=== PATIENT | male | born 1965 | race Hispanic/Latino ===

== ENCOUNTER 2018-06-02 04:14 | Inpatient (IN) | payer BC, OTHER ==
[2018-06-02] MEDS ORDERED: ALBUTEROL 2.5 MG/3 ML NEB SOL ONE (04:35)
[2018-06-02 04:59] LABS: Absolute Lymphocytes (CBC) 1.9 K/uL (0.7-4.9); Absolute Monocytes 0.7 K/uL (0.1-1.3); Absolute Neutrophil 13.1 K/uL (1.8-8.0); Basophils % 0.3 % (0-1.3); Eosinophils % 0.7 % (0-4.4); Lymphocytes % 12.2 % (15.3-44.8); MCH 31.4 pg (27.0-35.0); MPV 8.5 fL (7.6-11.3); Monocytes % 4.3 % (3.3-12.3); RBC Red Blood Cell Count 4.44 M/uL (4.33-5.43)
[2018-06-02 05:02] LABS: Protime INR 1.08
[2018-06-02 05:15] LABS: Potassium 3.8 mmol/L (3.5-5.1)
[2018-06-02] MEDS ORDERED: CEFTRIAXONE/SWI 1gm 1 GM/10 ML SYR ONE (05:20)
[2018-06-02] MEDS ORDERED: KETOROLAC 30 MG/ML INJ ONE (05:36)
--- NOTE | 2018-06-02 06:40 | EDPHYS ---
Physician Documentation [facility] Name: Chidi Melchor Age: 52 yrs Sex: Male : 1965 Arrival Date: 06/02/2018 Time: 04:16 Bed 16 Private MD: ED Physician Ward Nixon HPI: 06/02 06:31 This 52 yrs old Male presents to ER via Ambulatory with complaints of Chest gs Pain. 06:35 The patient or guardian reports chest pain that is located primarily in the anterior gs chest wall, right. Onset: acutely, yesterday. The pain does not radiate. Associated signs and symptoms: Pertinent positives: cough, shortness of breath. The chest pain is described as sharp. Duration: The patient or guardian reports a single episode, that is still ongoing. Modifying factors: the symptoms are aggravated by deep breath. Severity of pain: At its worst the pain was moderate in the emergency department the pain is unchanged. The patient has not experienced similar symptoms in the past. Historical: - Allergies: 04:50 No Known Allergies; ea - Home Meds: 04:50 None [Active]; ea - PMHx: 04:50 None; ea - PSHx: 04:50 None; ea - Immunization history:: Adult Immunizations up to date. - Social history:: Smoking status: Patient uses tobacco products, denies chronic smoking, but will smoke occasionally. - Ebola Screening: : No symptoms or risks identified at this time. ROS: 06:35 Constitutional: Negative for fever. gs 06:35 All other systems are negative. Exam: 06:35 Head/Face: Normocephalic, atraumatic. Eyes: Pupils equal round and reactive to light, gs extra-ocular motions intact. Lids and lashes normal. Conjunctiva and sclera are non-icteric and not injected. Cornea within normal limits. Periorbital areas with no swelling, redness, or edema. ENT: Nares patent. No nasal discharge, no septal abnormalities noted. Tympanic membranes are normal and external auditory canals are clear. Oropharynx with no redness, swelling, or masses, exudates, or evidence of obstruction, uvula midline. Mucous membranes moist. Neck: Trachea midline, no thyromegaly or masses palpated, and no cervical lymphadenopathy. Supple, full range of motion without nuchal rigidity, or vertebral point tenderness. No Meningismus. Chest/axilla: Normal chest wall appearance and motion. Nontender with no deformity. No lesions are appreciated. 06:35 Abdomen/GI: Soft, non-tender, with normal bowel sounds. No distension or tympany. No guarding or rebound. No evidence of tenderness throughout. Back: No spinal tenderness. No costovertebral tenderness. Full range of motion. Skin: Warm, dry with normal turgor. Normal color with no rashes, no lesions, and no evidence of cellulitis. MS/ Extremity: Pulses equal, no cyanosis. Neurovascular intact. Full, normal range of motion. Neuro: Awake and alert, GCS 15, oriented to person, place, time, and situation. Cranial nerves II-XII grossly intact. Motor strength 5/5 in all extremities. Sensory grossly intact. Cerebellar exam normal. Normal gait. 06:35 Constitutional: The patient appears alert, awake, uncomfortable. 06:35 Cardiovascular: Rate: tachycardic, Rhythm: regular, Pulses: no pulse deficits are appreciated, Heart sounds: normal. 06:35 ECG was reviewed by the Attending Physician. 06:35 Respiratory: mild respiratory distress is noted, Respirations: splinting, tachypnea, Breath sounds: rales, that are moderate, are scattered, Respiratory rate: 26 Vital Signs: 04:30 BP 145 / 95; Pulse 108; Resp 22; Temp 98.3(O); Pulse Ox 95% on R/A; Weight 97.52 kg; ea Height 5 ft. 8 in. (172.72 cm); Pain 7/10; 05:30 BP 107 / 72; Pulse 103; Resp 26 S; Pulse Ox 93% on 2.5 lpm NC; Pain 7/10; bs1 06:30 BP 155 / 85; Pulse 95; Resp 20; Temp 98.5(O); Pulse Ox 98% on 2.5 lpm NC; Pain 6/10; bs1 04:30 Body Mass Index 32.69 (97.52 kg, 172.72 cm) ea MDM: 04:27 Patient medically screened. 06:35 Differential diagnosis: acute myocardial infarction, coronary artery disease pneumonia, gs pulmonary embolus. Data reviewed: vital signs, nurses notes. 06/02 04:26 Order name: Basic Metabolic Panel; Complete Time: 05:22 06/02 04:26 Order name: CBC with Diff; Complete Time: 05:08 06/02 04:26 Order name: NT PRO-BNP; Complete Time: 05:22 06/02 04:26 Order name: PT-INR; Complete Time: 05:08 06/02 04:26 Order name: Troponin (emerg Dept Use Only); Complete Time: 05:22 06/02 04:26 Order name: D-Dimer; Complete Time: 05:08 06/02 04:26 Order name: XRAY Chest (1 view) 06/02 05:10 Order name: Blood Culture* 06/02 05:10 Order name: CT Chest For PE Angio 06/02 04:17 Order name: EKG; Complete Time: 04:17 06/02 04:17 Order name: EKG - Nurse/Tech; Complete Time: 04:30 06/02 04:26 Order name: EKG; Complete Time: 04:27 06/02 04:26 Order name: Cardiac monitoring; Complete Time: 05:01 06/02 04:26 Order name: EKG - Nurse/Tech; Complete Time: 04:30 06/02 04:26 Order name: IV Saline Lock; Complete Time: 04:42 06/02 04:26 Order name: Labs collected and sent; Complete Time: 04:42 06/02 04:26 Order name: O2 Per Protocol; Complete Time: 04:43 06/02 04:26 Order name: O2 Sat Monitoring; Complete Time: 04:43 gs EC:35 Rate is 109 beats/min. Rhythm is regular. DE interval is normal. QRS interval is gs normal. QT interval is normal. T waves are Flattened. Clinical impression: NSR w/ Non-specific ST/T Changes. Interpreted by me. Administered Medications: 04:30 Drug: Albuterol 2.5 mg Route: Inhalation; ea 05:20 Drug: Rocephin - (cefTRIAXone) 1 grams Route: IVPB; Infused Over: 30 mins; Site: left bs1 antecubital; 06:52 Follow up: IV Status: Completed infusion bs1 05:34 Drug: TORadol 15 mg Route: IVP; Site: left antecubital; bs1 06:52 Follow up: Response: No adverse reaction bs1 07:05 Drug: Zithromax 500 mg Route: IVPB; Infused Over: 1 hrs; Site: left antecubital; bs1 07:15 Follow up: IV Status: Infusion continued upon admission 07:05 Drug: NS 0.9% 1000 ml Route: IV; Rate: 1 bolus; Site: left antecubital; bs1 07:14 Follow up: IV Status: Infusion continued upon admission hj Disposition: 06:35 Critical Care:. gs Disposition: 06/02/18 06:40 Hospitalization ordered by Katy Sotelo for Inpatient Admission. Preliminary diagnosis are Lobar pneumonia, unspecified organism, Hypoxemia. - Bed requested for Telemetry/MedSurg (Inpatient). - Status is Inpatient Admission. hj - Condition is Stable. - Problem is new. - Symptoms have improved. UTI on Admission? No Critical care time excluding procedures: 06:35 Critical care time: Bedside Care: 10 minutes, Consultation: 10 minutes, Family gs Intervention: 10 minutes. Total time: 30 minutes Signatures: Dispatcher [employer] EDDE Lucy Payne RN RN Sidney Olivas RN RN Dena Omer RN RN ea Starr, Gregory, MD MD Ev Tavarez RN RN bs1 Corrections: (The following items were deleted from the chart) 06:47 06:40 Hospitalization Ordered by Katy Sotelo MD for Inpatient Admission. Preliminary diagnosis is Lobar pneumonia, unspecified organism; Hypoxemia. Bed requested for Telemetry/MedSurg (Inpatient). Status is Inpatient Admission. Condition is Stable. Problem is new. Symptoms have improved. UTI on Admission? No. 07:54 06:47 06/02/2018 06:40 Hospitalization Ordered by Katy Sotelo MD for Inpatient Admission. Preliminary diagnosis is Lobar pneumonia, unspecified organism; Hypoxemia. Bed requested for Telemetry/MedSurg (Inpatient). Status is Inpatient Admission. Condition is Stable. Problem is new. Symptoms have improved. UTI on Admission? No. mw
--- NOTE | 2018-06-02 06:40 | ER ---
Nurse's Notes [facility] Name: Chidi Melchor Age: 52 yrs Sex: Male : 1965 Arrival Date: 06/02/2018 Time: 04:16 Bed 16 Private MD: Diagnosis: Lobar pneumonia, unspecified organism;Hypoxemia Presentation: 06/02 04:30 Presenting complaint: Patient states: Pt reports he started having pain to the right ea side of chest at 2200. Pt reports it is painful to take deep breaths and pain radiates to upper back. Transition of care: patient was not received from another setting of care. Onset of symptoms was June 02, 2018. Risk Assessment: Do you want to hurt yourself or someone else? Patient reports no desire to harm self or others. Initial Sepsis Screen: Does the patient meet any 2 criteria? RR > 20 per min. HR > 90 bpm. Yes Does the patient have a suspected source of infection? No. Patient's initial sepsis screen is negative. Care prior to arrival: None. 04:30 Method Of Arrival: Ambulatory ea 04:30 Acuity: PARUL 3 ea Triage Assessment: 04:30 General: Appears in no apparent distress. Behavior is cooperative, restless. General: ea pt denies fall or injury to area. . Pain: Complains of pain in right clavicle, anterior aspect of right upper chest, right lateral anterior chest and right lateral posterior chest Pain radiates to right lateral anterior chest and right lateral posterior chest Pain currently is 8 out of 10 on a pain scale. Aggravated by pt reports pain is more intense when he takes in a deep breath. Cardiovascular: Heart tones S1 S2 present Patient's skin is warm and dry. Respiratory: Airway is patent Respiratory effort is even, shallow, Respiratory pattern is symmetrical, tachypnea Breath sounds are diminished bilaterally. GI: Abdomen is round Bowel sounds present X 4 quads. Abd is soft and non tender X 4 quads. : No signs and/or symptoms were reported regarding the genitourinary system. Derm: Skin is dry, Skin is normal, Skin temperature is warm. Musculoskeletal: Circulation, motion, and sensation intact. Historical: - Allergies: 04:50 No Known Allergies; ea - Home Meds: 04:50 None [Active]; ea - PMHx: 04:50 None; ea - PSHx: 04:50 None; ea - Immunization history:: Adult Immunizations up to date. - Social history:: Smoking status: Patient uses tobacco products, denies chronic smoking, but will smoke occasionally. - Ebola Screening: : No symptoms or risks identified at this time. Screenin:30 Abuse screen: Denies threats or abuse. Nutritional screening: No deficits noted. ea Tuberculosis screening: No symptoms or risk factors identified. Fall Risk None identified. Assessment: 04:58 General: Appears in no apparent distress. uncomfortable, Behavior is cooperative, bs1 anxious. Pain: Complains of pain in chest and right lateral posterior chest and right lateral anterior chest and anterior aspect of right upper chest and right clavicle Pain radiates to right upper back Pain began gradually. Neuro: Level of Consciousness is awake, alert, obeys commands, Oriented to person, place, time, situation, Appropriate for age It Security Administrator are equal bilaterally. Cardiovascular: Reports chest pain, shortness of breath, Heart tones S1 S2 present Capillary refill < 3 seconds Patient's skin is warm and dry. Cardiovascular: Rhythm is sinus tachycardia. Respiratory: Airway is patent Trachea midline Respiratory effort is even, unlabored, Respiratory pattern is regular, symmetrical, tachypnea Breath sounds with wheezes bilaterally. GI: No signs and/or symptoms were reported involving the gastrointestinal system. : No signs and/or symptoms were reported regarding the genitourinary system. EENT: No signs and/or symptoms were reported regarding the EENT system. Derm: Skin is intact, Skin is pink, warm \\T\\ dry. normal. Musculoskeletal: Circulation, motion, and sensation intact. Capillary refill < 3 seconds, Range of motion: intact in all extremities. 05:24 Reassessment: Informed Dr Nixon that patient began having more pain on the right side bs1 of patients chest. No further orders at this time. Administered 2.5L NC oxygen due to oxygen dropping to 90% on room air. Patient appears uncomfortable and grunting in pain Informed Dr Nixon. 05:38 Reassessment: Patient transferred to CT by Continuous Towel Roller. bs1 06:45 Reassessment: Dr Crawford at bedside communicating with patient regarding POC. Nurse bs1 informed Dr Crawford that rocephin 1gm was given prior to blood cultures. Informed Dr that patient has no fever. Dr States "okay, no problem." No further orders. 06:49 Reassessment: Patient appears in no apparent distress at this time. Patient and/or bs1 family updated on plan of care and expected duration. Pain level reassessed. Patient is alert, oriented x 3, equal unlabored respirations, skin warm/dry/pink. Pending admission to hospital. 07:05 General: Appears in no apparent distress. uncomfortable, Behavior is calm, cooperative, hj appropriate for age. Pain: Complains of pain in chest and right lateral posterior chest and right lateral anterior chest and anterior aspect of right upper chest and right clavicle Pain began gradually. Neuro: Level of Consciousness is awake, alert, obeys commands, Oriented to person, place, time, situation, Appropriate for age. Cardiovascular: Reports chest pain, shortness of breath, Heart tones S1 S2 present Capillary refill < 3 seconds Patient's skin is warm and dry. Rhythm is sinus rhythm. Respiratory: Airway is patent Trachea midline Respiratory effort is even, unlabored, Respiratory pattern is regular, symmetrical. GI: No signs and/or symptoms were reported involving the gastrointestinal system. : No signs and/or symptoms were reported regarding the genitourinary system. EENT: No signs and/or symptoms were reported regarding the EENT system. Derm: Skin is intact, Skin is pink, warm \\T\\ dry. normal. Musculoskeletal: Circulation, motion, and sensation intact. Capillary refill < 3 seconds, Range of motion: intact in all extremities. 07:28 Reassessment: gave nurse to nurse report to CONCEPCION Alt[facility]irano [facility];. Vital Signs: 04:30 BP 145 / 95; Pulse 108; Resp 22; Temp 98.3(O); Pulse Ox 95% on R/A; Weight 97.52 kg; ea Height 5 ft. 8 in. (172.72 cm); Pain 7/10; 05:30 BP 107 / 72; Pulse 103; Resp 26 S; Pulse Ox 93% on 2.5 lpm NC; Pain 7/10; bs1 06:30 BP 155 / 85; Pulse 95; Resp 20; Temp 98.5(O); Pulse Ox 98% on 2.5 lpm NC; Pain 6/10; bs1 04:30 Body Mass Index 32.69 (97.52 kg, 172.72 cm) ED Course: 04:16 Patient arrived in ED. bb 04:17 Ward Nixon MD is Attending Physician. gs 04:30 Arm band placed on right wrist. Patient placed in an exam room, on a stretcher, on ea pulse oximetry. 04:30 Patient has correct armband on for positive identification. Bed in low position. Call ea light in reach. Side rails up X 1. 04:30 Pulse ox on. NIBP on. ea 04:41 X-ray completed. Portable x-ray completed in exam room. Patient tolerated procedure tm4 well. 04:43 Inserted saline lock: 20 gauge in left antecubital area, using aseptic technique. Blood ea collected. 04:44 XRAY Chest (1 view) In Process Unspecified. EDMS 04:45 Ev Tavarez, CONCEPCION is Primary Nurse. bs1 04:48 Triage completed. ea 04:54 Patient maintains SpO2 saturation greater than 95% on room air. ea 05:07 Notified ED physician of a critical lab result(s). D-Dimer 767 Dr Nixon notified. bb 05:[address] via wheelchair. kw1 05:54 CT completed. Patient tolerated procedure well. Patient moved back from CT. kw1 05:57 CT Chest For PE Angio In Process Unspecified. EDMS 06:39 Katy Sotelo MD is Hospitalizing Provider. gs 07:52 No provider procedures requiring assistance completed. Patient admitted, IV remains in hj place. intact. Administered Medications: 04:30 Drug: Albuterol 2.5 mg Route: Inhalation; ea 05:20 Drug: Rocephin - (cefTRIAXone) 1 grams Route: IVPB; Infused Over: 30 mins; Site: left bs1 antecubital; 06:52 Follow up: IV Status: Completed infusion bs1 05:34 Drug: TORadol 15 mg Route: IVP; Site: left antecubital; bs1 06:52 Follow up: Response: No adverse reaction bs1 07:05 Drug: Zithromax 500 mg Route: IVPB; Infused Over: 1 hrs; Site: left antecubital; bs1 07:15 Follow up: IV Status: Infusion continued upon admission hj 07:05 Drug: NS 0.9% 1000 ml Route: IV; Rate: 1 bolus; Site: left antecubital; bs1 07:14 Follow up: IV Status: Infusion continued upon admission hj Outcome: 06:40 Decision to Hospitalize by Provider. 07:53 Admitted to Tele accompanied by tech, via wheelchair, room 420, with oxygen, with tammy chart, Report called to CONCEPCION Hoskins 07:53 Condition: stable 07:53 Instructed on the need for admit, Demonstrated understanding of instructions. 07:54 Patient left the ED. tammy Signatures: Dispatcher [employer] EDMS Yi Kaba tm4 Stormy Bourgeois RN RN Sidney Olivas RN RN hj Antunez, Elena, RN RN ea Starr, Gregory, MD MD Yvrose Ely kw1 Ev Tavarez RN RN bs1
[2018-06-02] MEDS ORDERED: NA CHLORIDE 0.9% 1,000 ML ONE (06:59)
[2018-06-02] MEDS ORDERED: AZITHROMYCIN 500 MG/250 ML BAG ONE (06:59)
--- NOTE | 2018-06-02 07:02 | P.HP ---
Certification for Inpatient Patient admitted to: Inpatient With expected LOS: >2 Midnights Practitioner: I am a practitioner with admitting privileges, knowledge of patient current condition, hospital course, and medical plan of care. Services: Services provided to patient in accordance with Admission requirements found in Title 42 Section 412.3 of the Code of Federal Regulations Patient History Date of Service: 06/02/18 Reason for admission: pneumonia History of Present Illness: Mr Melchor is a 52 years old male with quite benign past medical history, who start yesterday with right side chest pain. The pain was constant, radiated to his right flank, worse with breathing movements. He had subjective fever yesterday, has had some cough but not secretions. The patient states that he smokes and drinks sometimes but not everyday. Lab work remarkable for leukocytosis 15.9K, D-Dimer was elevated as well, CTA chest negative for PE but shows right base consolidation. Temp 98.3F, O2 sat 91% on RA. Home medications list reviewed: Yes - Past Medical/Surgical History Past Medical History: Reviewed- Non-Contributory Past Surgical History: Reviewed- Non-Contributory - Family History Family History: Reviewed- Non-Contributory - Social History Smoking Status: Current some day smoker Counseled patient to stop smoking for: less than 10 minutes Alcohol use: Yes CD- Drugs: No Place of Residence: Home Review of Systems 10-point ROS is otherwise unremarkable Physical Examination - Physical Exam General: Alert, In no apparent distress HEENT: Atraumatic, PERRLA, Mucous membr. moist/pink, EOMI, Sclerae nonicteric Neck: Supple, 2+ carotid pulse no bruit, No LAD, Without JVD or thyroid abnormality Respiratory: Normal air movement, Crackles/rales (right base crackles) Cardiovascular: Regular rate/rhythm, Normal S1 S2 Gastrointestinal: Normal bowel sounds, No tenderness Musculoskeletal: No tenderness Integumentary: No rashes Neurological: Normal speech, Normal strength at 5/5 x4 extr, Normal tone, Normal affect Lymphatics: No axilla or inguinal lymphadenopathy - Studies Laboratory Data (last 24 hrs) 06/02/18 04:40: PT 12.7 H, INR 1.08 06/02/18 04:40: WBC 15.9 H, Hgb 14.0, Hct 40.0, Plt Count 321 06/02/18 04:40: Sodium 140, Potassium 3.8, BUN 17, Creatinine 1.20, Glucose 130 H Assessment and Plan - Problems (Diagnosis) (1) Pneumonia Current Visit: Yes Status: Acute Qualifiers: Pneumonia type: due to unspecified organism Laterality: right Lung location: lower lobe of lung Qualified Code(s): J18.1 - Lobar pneumonia, unspecified organism - Plan The patient will be admitted to the hospital due to right lower lobe pneumonia. Blood cultures, sputum cultures, in process. Lactate and procalcitonin pending. Will star empiric treatment with IV Levaquin, order breathing treatments as needed. - Advance Directives Does patient have a Living Will: No Does patient have a Durable POA for Healthcare: No - Code Status/Comfort Care Code Status Assessed: Yes Code Status: Full Code
[2018-06-02] MEDS ORDERED: ACETAMINOPHEN 500 MG TAB PO PRN (07:30)
[2018-06-02] MEDS ORDERED: ALBUTEROL 2.5 MG/3 ML NEB SOL NEB PRN (07:30)
[2018-06-02] MEDS ORDERED: IPRATROPIUM BROM 0.5MG/2.5ML NEB PRN (07:30)
[2018-06-02] MEDS ORDERED: ONDANSETRON 4 MG/2 ML VIAL IV PRN (07:30)
--- NOTE | 2018-06-02 07:39 | EKG ---
Test Date: 2018-06-02 Test Time: 04:22:19 Tube Blower: CARMELLA MEASUREMENT RESULTS: Intervals: Rate: 109 CO: 136 QRSD: 92 QT: 312 QTc: 420 [place]: P: 38 CO: 136 QRS: -2 T: 20 INTERPRETIVE STATEMENTS: Sinus tachycardia Otherwise normal ECG Compared to ECG 04/13/2003 06:02:00 Sinus bradycardia no longer present Sinus arrhythmia no longer present Electronically Signed On 06-02-18 07:38:15 CDT by Stanley Chery
--- NOTE | 2018-06-02 08:16 | RAD REPORT ---
EXAM DESCRIPTION: CT - Chest For Pe Angio - 06/02/2018 6:50 am CLINICAL HISTORY: Chest pain. CHEST PAIN COMPARISON: No comparisons TECHNIQUE: CT angiogram of the pulmonary arteries was performed with MIP. All CT scans are performed using dose optimization technique as appropriate and may include automated exposure control or mA/KV adjustment according to patient size. FINDINGS: No evidence of pulmonary thromboembolism. Distal vessel assessment is inherently limited b y respiratory motion artifact. No acute aortic finding demonstrated. Moderate size consolidation is seen in the right upper lobe. Bibasilar opacities are also present whi ch are more linear likely representing subsegmental atelectasis or additional areas of pneumonia. No significant pericardial or pleural fluid. No concerning bony finding. Fatty liver. IMPRESSION: No evidence of pulmonary thromboembolism. Distal branch vessels somewhat suboptimal in v isualization due to motion artifact. Airspace consolidation right upper lobe likely representing pneumonia. Linear opacities in both lung bases may represent additional areas of pneumonia or atelectasis.
--- NOTE | 2018-06-02 08:17 | RAD REPORT ---
EXAM DESCRIPTION: RAD - Chest Single View - 06/02/2018 6:25 am CLINICAL HISTORY: CHEST PAIN Chest pain. COMPARISON: CHEST PA AND LAT 2 VIEW dated 12/24/2010 FINDINGS: Portable technique limits examination quality. Focal rounded pulmonary opacity is noted in the right upper lobe medially likely representing infiltr ate/ pneumonia. The lungs are underinflated. The heart is normal in size. No displaced fractures. IMPRESSION: Medial right upper lobe pneumonia suspected.
[2018-06-02 08:34] VITALS: BMI 32.6
[2018-06-02] MEDS: ENOXAPARIN 40 MG/0.4 ML SQ SCH (08:54)
[2018-06-02] MEDS: Levofloxacin 750mg IV 750 MG/150 ML BAG IV SCH (08:54)
[2018-06-02] MEDS: NA CHLORIDE 0.9% 1,000 ML IV SCH ×2 (08:54→18:10)
[2018-06-02] MEDS ORDERED: POTASSIUM CL SA 10 MEQ TAB PO ONE (11:08)
--- NOTE | 2018-06-02 12:29 | P.PN ---
Date of Service: 06/02/18 Called to see pt regarding right sided back pain. Pt seen and examined. Chart reviewed and case discussed w charge nurse Filomena Patient is on Dr. Shine service, admitted for PNA, RLL xray lumbar spine ordered. [place] prn for pain Monitor closely
[2018-06-02] MEDS: HYDROCODONE/APAP 5/325 MG TAB PO PRN ×2 (12:31→18:13)
--- NOTE | 2018-06-02 14:33 | RAD REPORT ---
EXAM DESCRIPTION: RAD - Lumbar Spine 3 Views - 06/02/2018 2:23 pm CLINICAL HISTORY: Back pain FINDINGS: The alignment of the lumbar spine is satisfactory. No fracture or dislocation is seen. Sacralization involves L5 Mild spondylosis involves the lumbar spine
[2018-06-02] MEDS ORDERED: LORAZEPAM 1 MG TABLET PO ONE (19:44)
[2018-06-03] MEDS: HYDROCODONE/APAP 5/325 MG TAB PO PRN (01:38)
[2018-06-03] MEDS: NA CHLORIDE 0.9% 1,000 ML IV SCH (03:30)
[2018-06-03 05:18] VITALS: O2SAT 92
[2018-06-03 05:52] LABS: Absolute Lymphocytes (CBC) 2.2 K/uL (0.7-4.9); Absolute Monocytes 0.5 K/uL (0.1-1.3); Absolute Neutrophil 7.6 K/uL (1.8-8.0); Basophils % 0.5 % (0-1.3); Eosinophils % 4.6 % (0-4.4); Lymphocytes % 20.6 % (15.3-44.8); MCH 31.9 pg (27.0-35.0); MCV 89.8 fL (80-100); MPV 8.3 fL (7.6-11.3); Monocytes % 4.5 % (3.3-12.3); RBC Red Blood Cell Count 4.12 M/uL (4.33-5.43)
[2018-06-03 06:07] LABS: Potassium 3.8 mmol/L (3.5-5.1)
[2018-06-03] MEDS ORDERED: POTASSIUM 25 MEQ EFFERV TAB PO ONE (06:25)
[2018-06-03] MEDS: Levofloxacin 750mg IV 750 MG/150 ML BAG IV SCH (08:17)
[2018-06-03] MEDS: ENOXAPARIN 40 MG/0.4 ML SQ SCH (08:17)
--- NOTE | 2018-06-03 13:57 | PN ---
Date of Progress Note: 06/03/2018 Subjective: The patient is seen and examined. Chart reviewed and case discussed with RN. The patie nt states his breathing is better. Still having some pain, pleuritic chest pain specially on the rig ht towards the posterior side. Review of Systems: Negative except as above. Medications: List reviewed. Physical Examination: Vital Signs: Temperature 98.6, heart rate 90, blood pressure 155/93, respirations 18, O2 saturation 95% on 2 L via nasal cannula. General: Awake, alert, oriented x3. Some mild distress, ill-appearing male, obese, BMI 32.7. CV: S1, S2. No murmurs. Regular rate and rhythm. Peripheral pulses present. Respiratory: Diminished breath sounds. No wheezing. Gastrointestinal: Abdomen is soft, nontender, nondistended. Positive bowel sounds. Extremities: No clubbing, cyanosis, or edema. Neurologic: Nonfocal. Laboratory Data: Sodium 143, potassium 3.8, chloride 111, CO2 of 24. BUN 12, creatinine 1, glucose 90, lactate 1, calcium 8.4, magnesium 2. WBC 10.8, H and H 13.1 and 37, platelets 360. Assessment And Plan: A 52-year-old male with; 1.Right lower lobe pneumonia. We will continue with IV antibiotics. IV fluids. 2.Obesity. Body mass index 32.7. 3.Gastrointestinal and deep venous thrombosis prophylaxis addressed. /AUBREY Voice ID: [id number] Report ID: [id number]
[2018-06-03 15:44] VITALS: BP 160/100
[2018-06-03 15:46] VITALS: TEMP 98.1
[2018-06-03] MEDS ORDERED: ALBUTEROL 2.5 MG/3 ML NEB SOL NEB PRN (17:00)
[2018-06-03] MEDS ORDERED: IPRATROPIUM BROM 0.5MG/2.5ML NEB PRN (17:00)
--- NOTE | 2018-06-04 04:16 | DS ---
Date of Discharge: 06/03/2018 Admitting Diagnoses: 1.Right lower lobe pneumonia. 2.Elevated blood pressure without diagnosis of hypertension. Discharge Diagnoses: 1.Right lower lobe pneumonia, improving. 2.Essential hypertension. Hospital Course: The patient is a 52-year-old male with no significant past medical history and does not see a physician on a regular basis, comes in with shortness of breath and some pleuritic chest p ain. The patient was found to have right lower lobe pneumonia on imaging study. D-dimer was elevate d. CT scan of the chest angiogram was done which showed no evidence of PE, right upper lobe pneumoni a was seen. The patient was started on IV antibiotics and IV fluids. The patient's condition improv ed. His white count normalized. His pain was significantly better. His troponin levels were negati ve. He did not have any further chest pain or pleuritic pain. The patient was then counseled on his elevated blood pressure. He has not seen a physician and has never been diagnosed with blood pressu re problems. I explained to him that he would be on a new medication for controlling his blood press ure. His hemoglobin A1c is 5.5%. He will be on chlorthalidone. He is recommended to establish care with a family physician to monitor his blood pressure. He was encouraged to discontinue smoking. T he patient voiced understanding. The patient was then cleared for discharge. Disposition: Discharged home in a stable condition. Activity: As tolerated. Medications: As per medication reconciliation list. Followup: Follow up with primary care physician in 2-3 days. Return to ER for worsening condition. Total time spent discharging the patient was 32 minutes. Physical Examination: For physical exam findings, please see progress note dictated on the day of discharge. /AUBREY Voice ID: [id number] Report ID: [id number]
== END 2018-06-03 17:02 | disposition home or self-care (01) | DRG 195 ==
LOC: ER 04:14 → ERHOLD 06:49 → 4TH 07:39
PROVIDERS: ADMIT Internal Medicine; ATTEND Family Medicine
DX: J18.9 Pneumonia, unspecified organism (principal); F17.200 Nicotine dependence, unspecified, uncomplicated; R09.02 Hypoxemia; I10 Essential (primary) hypertension; E66.9 Obesity, unspecified; Z68.32 Body mass index [BMI] 32.0-32.9, adult
CPT/HCPCS: 36415; 71045; 71275; 72100; 80048; 83036; 83605; 83735; 83880; 84145; 84484; 85025; 85379; 85610; 87040; 87070; 87205; 93005; 94640; 96365; 96366; 96375; 99285; J0456; J0696; J1650; J7030; Q9967

== ENCOUNTER 2018-09-11 18:51 | Emergency (ER) | payer BC ==
[2018-09-11 19:27] LABS: Absolute Lymphocytes (CBC) 2.9 K/uL (0.7-4.9); Absolute Monocytes 0.4 K/uL (0.1-1.3); Absolute Neutrophil 3.8 K/uL (1.8-8.0); Basophils % 1.1 % (0-1.3); Eosinophils % 7.8 % (0-4.4); Hematocrit 42.3 % (39.6-49.0); Lymphocytes % 37.1 % (15.3-44.8); MCH 31.6 pg (27.0-35.0); MCV 90.6 fL (80-100); MPV 8.5 fL (7.6-11.3); Monocytes % 5.6 % (3.3-12.3); RBC Red Blood Cell Count 4.67 M/uL (4.33-5.43)
[2018-09-11 19:59] LABS: ALT/SGPT 68 U/L (12-78); AST/SGOT 25 U/L (15-37); Albumin 4.1 g/dL (3.4-5.0); Alkaline Phosphatase 130 U/L (45-117); BUN Blood Urea Nitrogen 19 mg/dL (7-18); Bicarbonate 26 mmol/L (21-32); Bilirubin Total 0.2 mg/dL (0.2-1.0); Glucose Level 120 mg/dL (74-106); HDL Cholesterol 43 mg/dL (40-60); LDL Cholesterol, Calculated 144 (<130); Magnesium 2.3 mg/dL (1.8-2.4); NT PRO-BNP 18 pg/mL (<125); Potassium 3.5 mmol/L (3.5-5.1); Protein, Total 7.7 g/dL (6.4-8.2); Sodium Level 139 mmol/L (136-145); Troponin (Emerg Dept Use Only) < 0.02 ng/mL (0.0-0.045)
--- NOTE | 2018-09-11 20:10 | RAD REPORT ---
EXAM DESCRIPTION: RAD - Chest Single View - 09/11/2018 7:40 pm CLINICAL HISTORY: Chest pain COMPARISON: June 02 TECHNIQUE: AP portable chest image was obtained 1936 hours . FINDINGS: No acute lung parenchymal process. No failure or volume overload. Right lung field masslik e density seen in May has cleared. Heart and vasculature are normal. No measurable pleural effusion and no pneumothorax. No acute bony abnormality seen. No acute aortic findings suspected. IMPRESSION: No acute cardiopulmonary process. No suspicious change from prior imaging.
--- NOTE | 2018-09-11 22:30 | ER ---
Nurse's Notes [facility] Name: Chidi Melchor Age: 53 yrs Sex: Male : 1965 Arrival Date: 09/11/2018 Time: 18:52 Bed 24 Private MD: Dago Vazquez Diagnosis: Other chest pain Presentation: 09/11 18:52 Presenting complaint: Patient states: midsternal chest heaviness and pressure started 2 sv days ago. Denies SOB or dizziness. Transition of care: patient was not received from another setting of care. Onset of symptoms was September 09, 2018. Care prior to arrival: None. 18:52 Method Of Arrival: Wheelchair sv 18:52 Acuity: PARUL 3 sv 19:14 Risk Assessment: Do you want to hurt yourself or someone else? Patient reports no rv desire to harm self or others. Initial Sepsis Screen: Does the patient meet any 2 criteria? No. Patient's initial sepsis screen is negative. Does the patient have a suspected source of infection? No. Patient's initial sepsis screen is negative. Triage Assessment: 19:04 General: Appears in no apparent distress. uncomfortable, Behavior is calm, cooperative, sv appropriate for age. Pain: Denies pain. EENT: No signs and/or symptoms were reported regarding the EENT system. Neuro: Level of Consciousness is awake, alert, obeys commands, Oriented to person, place, time, situation, Moves all extremities. Full function Gait is steady. Cardiovascular: Patient's skin is warm and dry. Chest pain quality is heaviness, pressure, radiates none began 2 days ago episodes are intermittent. Respiratory: Respiratory effort is even, unlabored, Respiratory pattern is regular, symmetrical. Historical: - Allergies: 19:04 No Known Allergies; sv - Home Meds: 19:04 Omeprazole Oral [Active]; sv - PMHx: 19:04 GERD; sv - PSHx: 19:04 left finger; sv - Immunization history:: Flu vaccine is not up to date. - Social history:: Smoking status: Patient uses tobacco products, denies chronic smoking, but will smoke occasionally, Patient uses alcohol, occasionally. - Ebola Screening: : No symptoms or risks identified at this time. Screenin:14 Abuse screen: Denies threats or abuse. Denies injuries from another. Nutritional rv screening: No deficits noted. Tuberculosis screening: No symptoms or risk factors identified. Fall Risk None identified. Assessment: 19:11 General: Appears in no apparent distress. comfortable, Behavior is calm, cooperative. rv Pain: Pain does not radiate. Pain began suddenly, 2 hours ago. Neuro: Level of Consciousness is awake, alert, obeys commands, Oriented to person, place, time, situation. Cardiovascular: Capillary refill < 3 seconds. Respiratory: Airway is patent. GI: No signs and/or symptoms were reported involving the gastrointestinal system. : No signs and/or symptoms were reported regarding the genitourinary system. EENT: No signs and/or symptoms were reported regarding the EENT system. Derm: Skin is intact. 21:48 Reassessment: Patient appears in no apparent distress at this time. Patient and/or rv family updated on plan of care and expected duration. Pain level reassessed. Patient is alert, oriented x 3, equal unlabored respirations, skin warm/dry/pink. 21:59 Reassessment: repeat Trop sent. rv Vital Signs: 19:05 BP 176 / 111; Pulse 86; Resp 22; Temp 97.2; Pulse Ox 97% ; Weight 99.79 kg; Height 5 sv ft. 8 in. (172.72 cm); Pain 0/10; 21:47 BP 149 / 103; Pulse 71; Resp 16 S; Pulse Ox 97% ; Pain 0/10; rv 19:05 Body Mass Index 33.45 (99.79 kg, 172.72 cm) sv ED Course: 18:52 Patient arrived in ED. mr 18:52 Arm band placed on Patient placed in an exam room, on a stretcher, on pulse oximetry. sv 18:53 Dago Vazquez MD is Private Physician. mr 19:01 Claus Hernandez MD is Attending Physician. ps1 19:03 Triage completed. sv 19:15 Patient has correct armband on for positive identification. Bed in low position. Call rv light in reach. Side rails up X 1. Adult w/ patient. night monitor on. Pulse ox on. NIBP on. 19:15 Initial lab(s) drawn, by me, sent to lab. EKG done, by ED staff, reviewed by Claus Hernandez MD. Inserted saline lock: 20 gauge in right antecubital area, using aseptic technique. Blood collected. Patient maintains SpO2 saturation greater than 95% on room air. 19:17 CBC with Diff Sent. ds4 19:17 Magnesium Sent. ds4 19:17 NT PRO-BNP Sent. ds4 19:17 Troponin (emerg Dept Use Only) Sent. ds4 19:17 CMP Sent. ds4 19:17 Lipid Profile Sent. ds4 19:40 XRAY Chest (1 view) In Process Unspecified. EDMS 21:58 Troponin (emerg Dept Use Only) Sent. rv 22:29 Dulce Rosen MD is Referral Physician. ps1 22:36 No provider procedures requiring assistance completed. IV discontinued, bleeding rv controlled, No redness/swelling at site. Pressure dressing applied. Administered Medications: No medications were administered Outcome: 22:29 Discharge ordered by . ps1 22:36 Discharged to home ambulatory. rv 22:36 Condition: good 22:36 Discharge instructions given to patient, Instructed on discharge instructions, follow up and referral plans. Demonstrated understanding of instructions, follow-up care. 22:36 Patient left the ED. rv Signatures: Dispatcher [employer] Anika Burgos, CONCEPCION RN Henny Melchor SaenzJason ds4 Claus Hernandez MD MD ps1 Teto Marti RN RN rv Corrections: (The following items were deleted from the chart) 19:18 19:17 EKG done, ds4 ds4
--- NOTE | 2018-09-11 22:30 | EDPHYS ---
Physician Documentation [facility] Name: Chidi Melchor Age: 53 yrs Sex: Male : 1965 Arrival Date: 09/11/2018 Time: 18:52 Bed 24 Private MD: Dago Vazquez ED Physician Claus Hernandez HPI: 09/11 19:15 This 53 yrs old Male presents to ER via Wheelchair with complaints of Chest ps1 Pressure. 19:15 Pain localized substernal without radiation. Pain is mild and described as pressure or ps1 discomfort. Onset over the last week. Additionally has been exercising more including bench press. Has noticed his health decline and concerned about BP, Lipids, and weight. Has seen Candelarioaggolden in past but has been several years. . Historical: - Allergies: 19:04 No Known Allergies; sv - Home Meds: 19:04 Omeprazole Oral [Active]; sv - PMHx: 19:04 GERD; sv - PSHx: 19:04 left finger; sv - Immunization history:: Flu vaccine is not up to date. - Social history:: Smoking status: Patient uses tobacco products, denies chronic smoking, but will smoke occasionally, Patient uses alcohol, occasionally. - Ebola Screening: : No symptoms or risks identified at this time. ROS: 19:15 Constitutional: Negative for fever, chills, and weight loss, Eyes: Negative for injury, ps1 pain, redness, and discharge, Respiratory: Negative for shortness of breath, cough, wheezing, and pleuritic chest pain, Abdomen/GI: Negative for abdominal pain, nausea, vomiting, diarrhea, and constipation, MS/Extremity: Negative for injury and deformity, Skin: Negative for injury, rash, and discoloration, Neuro: Negative for headache, weakness, numbness, tingling, and seizure. 19:15 Cardiovascular: Positive for chest pain, of the mid-sternal area. Exam: 19:15 Constitutional: This is a well developed, well nourished patient who is awake, alert, ps1 and in no acute distress. Head/Face: Normocephalic, atraumatic. Eyes: Pupils equal round and reactive to light, extra-ocular motions intact. Lids and lashes normal. Conjunctiva and sclera are non-icteric and not injected. Chest/axilla: Normal chest wall appearance and motion. Nontender with no deformity. No lesions are appreciated. Cardiovascular: Regular rate and rhythm. No gallops, murmurs, or rubs. Normal PMI, no JVD. No pulse deficits. Respiratory: Lungs have equal breath sounds bilaterally, clear to auscultation and percussion. No rales, rhonchi or wheezes noted. No increased work of breathing, no retractions or nasal flaring. Abdomen/GI: Soft, non-tender, with normal bowel sounds. No distension or tympany. No guarding or rebound. No evidence of tenderness throughout. Skin: Warm, dry with normal turgor. Normal color with no rashes, no lesions, and no evidence of cellulitis. MS/ Extremity: Pulses equal, no cyanosis. Neurovascular intact. Full, normal range of motion. Neuro: Awake and alert, GCS 15, oriented to person, place, time, and situation. Cranial nerves II-XII grossly intact. Sensory grossly intact. 19:15 ECG was reviewed by the Attending Physician. ps1 Vital Signs: 19:05 BP 176 / 111; Pulse 86; Resp 22; Temp 97.2; Pulse Ox 97% ; Weight 99.79 kg; Height 5 sv ft. 8 in. (172.72 cm); Pain 0/10; 21:47 BP 149 / 103; Pulse 71; Resp 16 S; Pulse Ox 97% ; Pain 0/10; rv 19:05 Body Mass Index 33.45 (99.79 kg, 172.72 cm) sv MDM: 19:22 Patient medically screened. ps1 22:28 Data reviewed: vital signs, nurses notes, lab test result(s), EKG, and as a result, I ps1 will discharge patient. Counseling: I had a detailed discussion with the patient and/or guardian regarding: the historical points, exam findings, and any diagnostic results supporting the discharge/admit diagnosis, lab results, radiology results, the need for outpatient follow up, with Dr. Rosen in AM for stress test. Spoke with Silas and concurred with plan. . 09/11 19:10 Order name: CBC with Diff; Complete Time: 20:15 ps1 09/11 19:10 Order name: Magnesium; Complete Time: 20:15 ps1 09/11 19:10 Order name: NT PRO-BNP; Complete Time: 20:15 ps1 09/11 19:10 Order name: Troponin (emerg Dept Use Only); Complete Time: 20:15 [facility] 09/11 19:10 Order name: CMP; Complete Time: 20:15 ps1 09/11 19:10 Order name: Lipid Profile; Complete Time: 20:15 ps1 09/11 19:02 Order name: EKG; Complete Time: 19:02 sv 09/11 19:02 Order name: EKG - Nurse/Tech; Complete Time: 19:06 sv 09/11 19:10 Order name: XRAY Chest (1 view); Complete Time: 20:15 ps1 09/11 19:10 Order name: Cardiac monitoring; Complete Time: 19:16 ps1 09/11 19:10 Order name: IV Saline Lock; Complete Time: 19:16 ps1 09/11 19:10 Order name: Labs collected and sent; Complete Time: 19:17 ps1 09/11 19:10 Order name: O2 Per Protocol; Complete Time: 19:17 ps1 09/11 21:23 Order name: Troponin (emerg Dept Use Only); Complete Time: 22:28 ps1 09/11 19:10 Order name: O2 Sat Monitoring; Complete Time: 19:17 ps1 EC:09 Rate is 81 beats/min. Rhythm is regular. QRS [place] is Normal. [place] interval is normal. QRS ps1 interval is normal. QT interval is normal. No Q waves. T waves are Normal. No ST changes noted. Clinical impression: Normal ECG. Interpreted by me. Administered Medications: No medications were administered Disposition: 09/11/18 22:29 Discharged to Home. Impression: Other chest pain. - Condition is Stable. - Discharge Instructions: Nonspecific Chest Pain. - Medication Reconciliation Form, Thank You Letter, Antibiotic Education, Prescription Opioid Use form. - Follow up: Dulce Rosen MD; When: Tomorrow; Reason: Further diagnostic work-up, Recheck today's complaints, Continuance of care, Re-evaluation by your physician. Follow up: Emergency Department; When: As needed; Reason: Worsening of condition. - Problem is new. - Symptoms have improved. Signatures: Dispatcher [employer] EDMS Anika Aggarwal RN RN sv Singer, Phillip, MD MD ps1 Teto Marti RN RN rv Corrections: (The following items were deleted from the chart) 22:36 22:29 09/11/2018 22:29 Discharged to Home. Impression: Other chest pain. Condition is rv Stable. Forms are Medication Reconciliation Form, Thank You Letter, Antibiotic Education, Prescription Opioid Use. Follow up: Dulce Rosen; When: Tomorrow; Reason: Further diagnostic work-up, Recheck today's complaints, Continuance of care, Re-evaluation by your physician. Follow up: Emergency Department; When: As needed; Reason: Worsening of condition. Problem is new. Symptoms have improved. ps1
[2018-09-11 23:19] VITALS: TEMP 97.2; O2SAT 97
[2018-09-11 23:20] VITALS: BP 149/103
--- NOTE | 2018-09-12 08:59 | EKG ---
Test Date: 2018-09-11 Test Time: 19:09:16 Audio Visual Engineer: ANSLEY MEASUREMENT RESULTS: Intervals: Rate: 81 ND: 146 QRSD: 98 QT: 356 QTc: 413 [place]: P: 35 ND: 146 QRS: -2 T: 17 INTERPRETIVE STATEMENTS: Normal sinus rhythm Normal ECG Compared to ECG 06/02/2018 04:22:19 Sinus tachycardia no longer present Electronically Signed On 09-12-18 08:58:28 CDT by Stanley Chery
== END 2018-09-11 22:36 | disposition home or self-care (01) ==
LOC: ER 18:51
DX: R07.89 Other chest pain (principal); K21.9 Gastro-esophageal reflux disease without esophagitis; Z72.0 Tobacco use
CPT/HCPCS: 36415; 71045; 80053; 80061; 83735; 83880; 84484; 85025; 93005; 99285

== ENCOUNTER 2019-12-31 03:55 | Emergency (ER) | payer BC ==
--- NOTE | 2019-12-31 05:04 | ER ---
Nurse's Notes [facility] Name: Chidi Melchor Age: 54 yrs Sex: Male : 1965 Arrival Date: 12/31/2019 Time: 03:57 Bed 7 Private MD: Diagnosis: Hemorrhoids and perianal venous thrombosis Presentation: 12/31 04:02 Presenting complaint: Patient states: bright red rectal bleeding when he wipes for past aa1 couple days and now feels a painful lump at his rectum. Reports he did have a colonoscopy about 3 months ago which was negative for any abnormal findings. Transition of care: patient was not received from another setting of care. Onset of symptoms was December 29, 2019. Risk Assessment: Do you want to hurt yourself or someone else? Patient reports no desire to harm self or others. Initial Sepsis Screen: Does the patient meet any 2 criteria? No. Patient's initial sepsis screen is negative. Does the patient have a suspected source of infection? No. Patient's initial sepsis screen is negative. Care prior to arrival: None. 04:02 Method Of Arrival: Ambulatory aa1 04:02 Acuity: PARUL 3 aa1 Historical: - Allergies: 04:54 No Known Allergies; aa1 - Home Meds: 04:54 Unable to obtain [Active]; aa1 - PMHx: 04:54 GERD; High Cholesterol; Hypertension; aa1 - PSHx: 04:54 left finger; aa1 - Immunization history:: Flu vaccine is up to date. - Coronavirus screen:: The patient has NOT traveled to [place] in the past 14 days. Proceed with normal triage process as indicated. - Social history:: Smoking status: Patient reports the use of cigarette tobacco products, denies chronic smoking, but will smoke occasionally, Patient uses alcohol, only on a social basis. - Ebola Screening: : No symptoms or risks identified at this time. Screenin:05 Abuse screen: Denies threats or abuse. Denies injuries from another. Nutritional aa1 screening: No deficits noted. Tuberculosis screening: No symptoms or risk factors identified. Fall Risk None identified. Assessment: 04:05 General: Appears in no apparent distress. comfortable, Behavior is calm, cooperative, aa1 appropriate for age. Pain: Complains of pain in gluteal cleft. Neuro: Level of Consciousness is awake, alert, obeys commands, Oriented to person, place, time, situation, Moves all extremities. Full function Gait is steady. Respiratory: Airway is patent Respiratory effort is even, unlabored, Respiratory pattern is regular, symmetrical. GI: Reports rectal bleeding. GI: Rectal exam: Hemorrhoids noted. : No signs and/or symptoms were reported regarding the genitourinary system. EENT: No signs and/or symptoms were reported regarding the EENT system. Derm: Skin is intact, is healthy with good turgor, Skin is pink, warm \T\ dry. Musculoskeletal: Circulation, motion, and sensation intact. Capillary refill < 3 seconds. 05:13 Reassessment: Patient appears in no apparent distress at this time. Patient is alert, aa1 oriented x 3, equal unlabored respirations, skin warm/dry/pink. Discussed d/c \T\ f/u instructions with pt; denies questions or concerns at this time. Ambulatory to lobby with steady gait. Vital Signs: 04:02 BP 144 / 86; Pulse 90; Resp 18; Temp 98.5; Pulse Ox 96% ; Weight 99.79 kg; Height 5 ft. aa1 8 in. (172.72 cm); Pain 8/10; 04:02 Body Mass Index 33.45 (99.79 kg, 172.72 cm) aa1 ED Course: 03:57 Patient arrived in ED. cl3 04:02 Patient placed in an exam room, on a stretcher. aa1 04:04 Scooby Sesay MD is Attending Physician. tw4 04:05 Patient has correct armband on for positive identification. Placed in gown. Bed in low aa1 position. Call light in reach. Pulse ox on. NIBP on. 04:25 Yael Das, RN is Primary Nurse. aa1 04:39 Triage completed. aa1 04:40 Served as a lottery clerk during rectal exam. Patient did not have IV access during this aa1 emergency room visit. Administered Medications: No medications were administered Outcome: 05:04 Discharge ordered by . tw4 05:13 Discharged to home ambulatory, with family. aa1 05:13 Condition: good 05:13 Discharge instructions given to patient, Instructed on discharge instructions, follow up and referral plans. medication usage, Demonstrated understanding of instructions, follow-up care, medications, Prescriptions given X 3. 05:14 Patient left the ED. aa1 Signatures: Yael Das RN RN aa1 Scooby Sesay MD MD tw4 Francisco Burrell cl3
--- NOTE | 2019-12-31 05:05 | EDPHYS ---
Physician Documentation [facility] Name: Chidi Melchor Age: 54 yrs Sex: Male : 1965 Arrival Date: 12/31/2019 Time: 03:57 Bed 7 Private MD: ED Physician Scooby Sesay Historical: - Allergies: 12/31 04:54 No Known Allergies; aa1 - Home Meds: 04:54 Unable to obtain [Active]; aa1 - PMHx: 04:54 GERD; High Cholesterol; Hypertension; aa1 - PSHx: 04:54 left finger; aa1 - Immunization history:: Flu vaccine is up to date. - Coronavirus screen:: The patient has NOT traveled to [place] in the past 14 days. Proceed with normal triage process as indicated. - Social history:: Smoking status: Patient reports the use of cigarette tobacco products, denies chronic smoking, but will smoke occasionally, Patient uses alcohol, only on a social basis. - Ebola Screening: : No symptoms or risks identified at this time. Vital Signs: 04:02 BP 144 / 86; Pulse 90; Resp 18; Temp 98.5; Pulse Ox 96% ; Weight 99.79 kg; Height 5 ft. aa1 8 in. (172.72 cm); Pain 8/10; 04:02 Body Mass Index 33.45 (99.79 kg, 172.72 cm) aa1 MDM: 04:04 Patient medically screened. tw4 Administered Medications: No medications were administered Disposition: 12/31/19 05:04 Discharged to Home. Impression: Hemorrhoids and perianal venous thrombosis. - Condition is Stable. - Discharge Instructions: Hemorrhoids. - Prescriptions for Anusol- HC 2.5 % Rectal Cream - Apply to affected area 1 application by TOPICAL route every 8 hours As needed; 30 gram. Colace 100 mg Oral Tablet - take 1 tablet by ORAL route every 12 hours; 14 tablet. Anusol- HC 25 mg Rectal Suppository - insert 1 suppository by RECTAL route every 12 hours As needed; 20 suppository. - Medication Reconciliation Form, Thank You Letter, Antibiotic Education, Prescription Opioid Use form. - Follow up: Private Physician; When: Upon discharge from the Emergency Department; Reason: If symptoms return, Recheck today's complaints, Continuance of care. - Problem is new. - Symptoms have improved. Addendum: 01/15/2020 07:00 Addendum: Pt is 54 year old male that comes to the ED wit complaint of "blood" when he t w4 wipes. Pt states that this started today. Pt denies dark stools or hematemesis. Pt denies abdominal pain, nausea vomiting. pt denies fever or chills. 07:05 Addendum: ROS: Constitutional: negative for fever chills, malaise HEENT: negative for t w4 sore throat, dysphagia, visual disturbance Resp: negative for SOB, SOTELO, cough CV: negative for CP, palpitations Abdomen: positive for rectal bleeding, negative for abdominal pain, nausea, vomiting diarrhea . Addendum: PE: General: well developed well-nourished male in NAD HEENT: PERRLA, EOMI Resp: CTAB nl BS CV: RRR, s1, s2, no murmurs no gallops Abdomen: soft, ND/NT rectal exam, small external thrombosed, inflamed hemorrhoid at 7 0 clock, no active bleeding. Addendum: . Signatures: Dispatcher [employer] EDWI Yael Das RN RN aa1 Scooby Sesay MD MD tw4 Corrections: (The following items were deleted from the chart) 12/31 05:00 04:04 IV Saline Lock ordered. tw4 aa1 05:01 04:04 Labs collected and sent ordered. 4 aa1 05:14 05:04 12/31/2019 05:04 Discharged to Home. Impression: Hemorrhoids and perianal venous aa1 thrombosis. Condition is Stable. Forms are Medication Reconciliation Form, Thank You Letter, Antibiotic Education, Prescription Opioid Use. Follow up: Private Physician; When: Upon discharge from the Emergency Department; Reason: If symptoms return, Recheck today's complaints, Continuance of care. Problem is new. Symptoms have improved. tw4
[2019-12-31 05:29] VITALS: BP 115/74; TEMP 97.5; O2SAT 98
== END 2019-12-31 05:14 | disposition home or self-care (01) ==
LOC: ER 03:55
DX: K64.5 Perianal venous thrombosis (principal); I10 Essential (primary) hypertension; Z72.0 Tobacco use
CPT/HCPCS: 99283